=== PATIENT | female | born 1985 | race Caucasian/White ===

== ENCOUNTER → 2023-06-15 09:36 | Outpatient (REF) | payer BC, SELFPAY | LOC: HWRAD 09:36 | PROVIDERS: ATTENDING PHYSICIAN Nurse Practitioner Family; FAMILY PHYSICIAN Nurse Practitioner Primary Care | DX: M25.561 Pain in right knee (principal) | CPT/HCPCS: 73564 ==

== ENCOUNTER → 2023-10-21 08:34 | Outpatient (REF) | payer BC, SELFPAY | LOC: HWRAD 08:34 | PROVIDERS: ATTENDING PHYSICIAN Nurse Practitioner Primary Care | DX: Z90.3 Acquired absence of stomach [part of] (principal); R10.13 Epigastric pain; R10.12 Left upper quadrant pain; K21.9 Gastro-esophageal reflux disease without esophagitis; K44.9 Diaphragmatic hernia without obstruction or gangrene | CPT/HCPCS: 74177; Q9967 ==